=== PATIENT | male | born 1990 | race Caucasian/White ===

== ENCOUNTER 2018-01-21 22:01 | Emergency (ER) | payer MEDICAID ==
[~2018-01-21] VITALS: Ht 182.9 cm; Wt 131.5 kg
[2018-01-21 22:15] VITALS: BP 122/80
== END 2018-01-22 01:15 | disposition left against medical advice (07) ==
LOC: ER 23:23
DX: Z53.21 Procedure and treatment not carried out due to patient leaving prior to being seen by health care provider (principal)